=== PATIENT | male | born 1990 | race Caucasian/White ===

== ENCOUNTER 2017-02-28 19:42 | Emergency (ER) | payer OTHER ==
[~2017-02-28] VITALS: Ht 182.9 cm; Wt 97.5 kg
[~2017-02-28 19:42] MED LIST: IBUPROFEN 800800 MG PO; LIDOCREAM5 GM TP; NORCO 5-325 TA1 EAC1 PO; NORCO 5-325 TA1 EACH PO
[2017-02-28] MEDS ORDERED: FLEXERIL PO (19:54)
[2017-02-28] MEDS ORDERED: NAPROSYN500 MG PO (19:54)
[2017-02-28 20:25] LABS: HEMATOCRIT 36.8 % (42.0-52.0); HEMOGLOBIN 12.9 gm/dL (14.0-18.0); MCH 31.4 pg (26.0-34.0); MCHC 35.1 g/dL (28.0-37.0); MCV 89.6 fL (80.0-100.0); MPV 7.1 fl. (7.2-11.1); RBC 4.11 mil/uL (4.50-6.00); RDW-CV 12.8 % (10.5-14.5); WBC 9.2 thou/uL (4.0-11.0)
[2017-02-28 20:37] LABS: CREATININE 0.9 mg/dL (0.6-1.3); POTASSIUM 3.7 mmol/L (3.5-5.1)
[2017-02-28] MEDS ORDERED: NORVASC5 MG PO (21:09)
[2017-02-28 21:26] VITALS: BP 169/98
== END 2017-02-28 21:26 | disposition home or self-care (01) ==
LOC: M.ERS 19:42
PROVIDERS: Physician Assistant
DX: I10 Essential (primary) hypertension (principal)

== ENCOUNTER 2018-05-04 12:37 | Emergency (ER) | payer OTHER ==
[~2018-05-04] VITALS: Ht 182.9 cm; Wt 93.0 kg
[~2018-05-04 12:37] MED LIST changes: +FLEXERIL PO; +NAPROSYN500 MG PO; +NORVASC5 MG PO
[2018-05-04] MEDS ORDERED: NOHOMEMEDICATIONS (12:49)
[2018-05-04 13:46] LABS: ABSOLUTE LYMPHOCYTES 1.8 thou/uL (0.8-5.3); ABSOLUTE MONOCYTES 0.5 thou/uL (0.0-1.2); ABSOLUTE NEUTROPHILS 8.7 thou/uL (1.6-8.1); BASOPHILS 0.3 %; EOSINOPHILS 0.2 %; HEMATOCRIT 36.5 % (42.0-52.0); HEMOGLOBIN 12.8 gm/dL (14.0-18.0); LYMPHOCYTES 16.3 %; MCHC 35.1 g/dL (28.0-37.0); MCV 88.2 fL (80.0-100.0); MONOCYTES 4.9 %; MPV 7.6 fl. (7.2-11.1); NUCLEATED RBCS 0 /100WBC; PLATELET COUNT* 411 thou/uL (150-400); POLYS 78.3 %; RBC 4.13 mil/uL (4.50-6.00); RDW-CV 12.7 % (10.5-14.5); WBC 11.1 thou/uL (4.0-11.0)
[2018-05-04 13:57] LABS: APTT 26.7 Seconds (25.0-31.3); INR 1.1
[2018-05-04 14:00] LABS: ALBUMIN 3.6 g/dL (3.4-5.0); CALCIUM 9.1 mg/dL (8.5-10.1); CREATININE 0.9 mg/dL (0.6-1.3); POTASSIUM 4.5 mmol/L (3.5-5.1); TOTAL BILIRUBIN 0.5 mg/dL (<0.1-1.0); TOTAL PROTEIN 6.5 g/dL (6.4-8.2)
[2018-05-04] MEDS ORDERED: OMEPRAZOLE 20 M20 M1 PO (15:17)
[2018-05-04] MEDS ORDERED: CARAFATE 1 GM TA1 G1 PO (15:17)
[2018-05-04 15:31] VITALS: BP 122/79
== END 2018-05-04 15:32 | disposition home or self-care (01) ==
LOC: M.ERS 12:37
PROVIDERS: Nurse Practitioner Family
DX: R19.5 Other fecal abnormalities (principal)

== ENCOUNTER 2019-01-11 21:11 | Emergency (ER) | payer OTHER ==
[~2019-01-11] VITALS: Ht 182.9 cm; Wt 90.7 kg
[~2019-01-11 21:11] MED LIST changes: +CARAFATE 1 GM TA1 G1 PO; +NOHOMEMEDICATIONS; +OMEPRAZOLE 20 M20 M1 PO
[2019-01-11 21:45] LABS: ABSOLUTE EOSINOPHILS 0.3 thou/uL (0.0-0.7); ABSOLUTE LYMPHOCYTES 3.3 thou/uL (0.8-5.3); ABSOLUTE MONOCYTES 0.7 thou/uL (0.0-1.2); ABSOLUTE NEUTROPHILS 7.4 thou/uL (1.6-8.1); BASOPHILS 0.4 %; EOSINOPHILS 2.8 %; HEMATOCRIT 44.1 % (42.0-52.0); HEMOGLOBIN 15.8 gm/dL (14.0-18.0); LYMPHOCYTES 28.3 %; MCH 31.8 pg (26.0-34.0); MCHC 35.8 g/dL (28.0-37.0); MCV 88.8 fL (80.0-100.0); MPV 7.9 fl. (7.2-11.1); NUCLEATED RBCS 0 /100WBC; PLATELET COUNT* 349 thou/uL (150-400); POLYS 62.5 %; RBC 4.96 mil/uL (4.50-6.00); RDW-CV 12.6 % (10.5-14.5); WBC 11.8 thou/uL (4.0-11.0)
[2019-01-11 21:49] LABS: CALCIUM 8.5 mg/dL (8.5-10.1); POTASSIUM 3.8 mmol/L (3.5-5.1)
[2019-01-11 22:00] LABS: ALBUMIN 3.8 g/dL (3.4-5.0); TOTAL BILIRUBIN 0.4 mg/dL (<0.1-1.0)
[2019-01-11] MEDS ORDERED: CARAFATE1 GM PO (22:24)
[2019-01-11] MEDS ORDERED: PEPCID40 MG PO (22:24)
[2019-01-11 22:34] VITALS: BP 152/92
--- NOTE | 2019-01-12 13:13 | EKG ---
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1990 Requested By: Luis Carlos Branch Order Number: [id number] MD: Bharathi Bustillos Measurements Intervals [place] Rate: 67 P: 64 NM: 145 QRS: 44 QRSD: 89 T: 31 QT: 386 QTc: 408 Interpretive Statements Sinus rhythm Baseline wander in lead(s) V6 No previous ECG available for comparison Electronically Signed On 01-12-2019 13:13:43 [employer]ENN[employer]FF MEMBER by Bharathi Bustillos [email or web address] <ELECTRONICALLY SIGNED> By: Bharathi Bustillos MD, [facility] 01/12/19 1313 2115 14 Bharathi Bustillos MD, FACC /EPI
== END 2019-01-11 22:35 | disposition home or self-care (01) ==
LOC: M.ERS 21:11
PROVIDERS: Emergency Medicine
DX: K29.70 Gastritis, unspecified, without bleeding (principal); I10 Essential (primary) hypertension

== ENCOUNTER 2020-09-19 07:58 | Observation (INO) | payer OTHER ==
[~2020-09-19] VITALS: Ht 182.9 cm; Wt 96.4 kg
--- NOTE | ~2020-09-19 | OP ---
[facility] [address] [place] [address] OPERATIVE REPORT Name: EVELIA CAMPOS Room: [address] M.R.#: [id number] Admission: 09/19/20 Attend Phys: Jhoana Goldstein MD Discharge: Date of : 88 Report #: [id number] THIS REPORT FOR: cc: Talita Riggs Michelle RNP Patterson, Jonathan D. MD ~ DATE OF SURGERY: 09/20/2020 PREOPERATIVE DIAGNOSIS: Cholecystitis. POSTOPERATIVE DIAGNOSIS: Cholecystitis. OPERATION: Laparoscopic cholecystectomy with intraoperative cholangiogram. SURGEON: Jarrod Feliciano MD ANESTHESIA: General. ESTIMATED BLOOD LOSS: Minimal. SPECIMENS: Gallbladder. DESCRIPTION OF PROCEDURE: After informed consent was obtained, the patient was brought to the operating room and placed supine. SCDs were placed and working, preoperative antibiotics were administered, general anesthesia was induced. The abdomen was prepped and draped in the usual sterile fashion. A 10 mm incision was made below the umbilicus. Fascia was incised and a trocar was placed. Pneumoperitoneum was established. Three right upper quadrant 5 mm ports were placed. Gallbladder was grasped at the fundus and retracted cephalad. Infundibulum was grasped and retracted laterally. I dissected out the cystic duct and the cystic artery. Cystic duct was clipped and a ductotomy was made. Cystic duct was cannulated with a catheter and a cholangiogram was performed. This demonstrated filling of the cystic duct, common bile duct, common hepatic duct, bifurcation of the hepatics, smooth flow into the duodenum. This was normal. The catheter was removed. The cystic duct was ligated using a PDS Endoloop. Cystic artery was clipped and ligated leaving one clip on the remaining artery. Gallbladder was then taken off the liver bed with electrocautery. It was placed into an Endopouch and removed. The fascia was then closed with a [id number] 0 Vicryl. Skin was closed with 4-0 Monocryl. Incisions were dressed with Steri-Strips. COMPLICATIONS: [place] [address] OPERATIVE REPORT Name: EVELIA CAMPOS Room: [address]#: [id number] Admission: 09/19/20 Attend Phys: Jhoana Goldstein MD Discharge: Date of : 88 Report #: [id number] DISPOSITION: The patient was taken to recovery in satisfactory condition. By: [id number] Feliciano MD /nt
[~2020-09-19 07:58] MED LIST changes: +CARAFATE1 GM PO; +PEPCID40 MG PO
[2020-09-19 08:06] VITALS: BP 159/105
[2020-09-19] MEDS ORDERED: NORVASC5 MG PO (08:09)
[2020-09-19 09:19] LABS: ABSOLUTE EOSINOPHILS 0.4 thou/uL (0.0-0.7); ABSOLUTE LYMPHOCYTES 2.2 thou/uL (0.8-5.3); ABSOLUTE MONOCYTES 0.6 thou/uL (0.0-1.2); ABSOLUTE NEUTROPHILS 5.6 thou/uL (1.6-8.1); BASOPHILS 0.2 %; EOSINOPHILS 4.4 %; HEMATOCRIT 43.8 % (42.0-52.0); HEMOGLOBIN 15.8 gm/dL (14.0-18.0); LYMPHOCYTES 24.5 %; MCH 33.1 pg (26.0-34.0); MCHC 36.2 g/dL (28.0-37.0); MCV 91.5 fL (80.0-100.0); MONOCYTES 7.3 %; MPV 7.4 fl. (7.2-11.1); NUCLEATED RBCS 0 /100WBC; PLATELET COUNT* 272 thou/uL (150-400); POLYS 63.6 %; RBC 4.79 mil/uL (4.50-6.00); RDW-CV 12.6 % (10.5-14.5); WBC 8.8 thou/uL (4.0-11.0)
[2020-09-19 09:28] LABS: CALCIUM 8.4 mg/dL (8.5-10.1); POTASSIUM 4.7 mmol/L (3.5-5.1)
[2020-09-19 09:37] LABS: ALBUMIN 4.4 g/dL (3.4-5.0); TOTAL BILIRUBIN 0.8 mg/dL (<0.1-1.0); TOTAL PROTEIN 7.4 g/dL (6.4-8.2)
[2020-09-19 16:23] VITALS: BP 141/90
[2020-09-19 16:30] VITALS: BP 139/101
[2020-09-19] MEDS ORDERED: HYDROCHLOROTHIA25 M1 PO (20:10)
[2020-09-19 21:00] VITALS: BP 131/87
[2020-09-20 06:37] VITALS: BP 139/101
[2020-09-20 08:51] VITALS: BP 139/101
--- NOTE | 2020-09-20 09:33 | EKG ---
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 09/20/20 0933 3 3 FJenny Cabrera MD, [facility] /EPI
[2020-09-20 10:00] VITALS: BP 133/75
[2020-09-20] MEDS ORDERED: HYDROCODON-ACE1 EAC7 PO (10:35)
[2020-09-20] MEDS ORDERED: NORVASC5 MG PO (10:35)
[2020-09-20 14:11] VITALS: BP 139/101
--- NOTE | 2020-09-21 18:06 | PATH ---
[address] [address] PATHOLOGY RPT PROCEDURE Name: EVELIA CAMPOS Room: [address] Clive#: [id number] Admission: 09/19/20 Date of : [birth year] Discharge: 09/20/20 Report #: [id number] Path Case #: [id number] [facility] Accession Number: [id number] . 01 Material submitted: . gallbladder - GALLBLADDER . 01 Clinical history: . CHRONIC CHOLECYSTITIS . 02 Diagnosis: Gallbladder: - Chronic cholecystitis. (OLU/db; 09/21/2020) LBQ 09/21/2020 1532 Local . 02 Electronically signed: . Vimal Leon MD, Pathologist NPI- [id number] . 01 Gross description: . Fixative: Formalin Labeled: Gallbladder Specimen received: Intact gallbladder Dimensions: 6.5 x 2.6 x 2.2 cm Serosa: Light hobbs to light red Lymph node: None identified Mucosa: Velvety and bile-stained Average wall thickness: 0.1 cm Calculi: None identified Abnormalities: None identified . A1- Chemical Laboratory Tester body, fundus, and the cystic duct margin. ([facility]; 09/20/2020) [facility] 09/20/2020 1712 Local . 02 Pathologist provided ICD-10: K81.1 . 02 CPT . 818410 Specimen Comment: A courtesy copy of this report has been sent to [phone] Specimen Comment: Report sent to Performed at: [address], [place], [place] [id number] MD Kelton Mayes MD Phone: [phone] Performed at: [address] [address] PATHOLOGY RPT PROCEDURE Name: EVELIA CAMPOS Room: [address]#: [id number] Admission: 09/19/20 Date of : [birth year] Discharge: 09/20/20 Report #: [id number] Path Case #: [id number] [facility] [address] [place], [place] [id number] MD Vimal Leon MD Phone: [phone]
== END 2020-09-20 14:13 | disposition home or self-care (01) ==
LOC: M.ERS 07:58 → M.TBA-ER 12:19 → M.3W 16:38
PROVIDERS: Emergency Medicine Emergency Medical Services; ADMIT Internal Medicine; ATTEND Internal Medicine
DX: K81.9 Cholecystitis, unspecified (principal); K83.9 Disease of biliary tract, unspecified; Z20.822 Contact with and (suspected) exposure to COVID-19; I10 Essential (primary) hypertension; Z79.899 Other long term (current) drug therapy

== ENCOUNTER 2020-11-11 22:03 | Emergency (ER) | payer OTHER ==
[~2020-11-11] VITALS: Ht 182.9 cm; Wt 88.9 kg
[~2020-11-11 22:03] MED LIST changes: +HYDROCHLOROTHIA25 M1 PO; +HYDROCODON-ACE1 EAC7 PO
[2020-11-11] MEDS ORDERED: BLOOD PRESSURE MED (22:18)
[2020-11-11 22:42] LABS: ABSOLUTE LYMPHOCYTES 1.2 thou/uL (0.8-5.3); ABSOLUTE MONOCYTES 0.5 thou/uL (0.0-1.2); ABSOLUTE NEUTROPHILS 6.9 thou/uL (1.6-8.1); BASOPHILS 0.3 %; EOSINOPHILS 0.3 %; HEMATOCRIT 44.4 % (42.0-52.0); HEMOGLOBIN 16.1 gm/dL (14.0-18.0); LYMPHOCYTES 14.4 %; MCH 32.8 pg (26.0-34.0); MCHC 36.3 g/dL (28.0-37.0); MCV 90.4 fL (80.0-100.0); MONOCYTES 5.4 %; MPV 7.2 fl. (7.2-11.1); NUCLEATED RBCS 0 /100WBC; PLATELET COUNT* 305 thou/uL (150-400); POLYS 79.6 %; RBC 4.91 mil/uL (4.50-6.00); RDW-CV 12.6 % (10.5-14.5); WBC 8.6 thou/uL (4.0-11.0)
[2020-11-11 22:54] LABS: CALCIUM 8.6 mg/dL (8.5-10.1); CREATININE 0.9 mg/dL (0.6-1.3); POTASSIUM 3.1 mmol/L (3.5-5.1)
[2020-11-11 22:59] LABS: ALBUMIN 4.8 g/dL (3.4-5.0); TOTAL BILIRUBIN 0.5 mg/dL (<0.1-1.0)
[2020-11-11 23:01] LABS: ALCOHOL 141 mg/dL (<10); SALICYLATE < 2.8 mg/dL (2.8-20.0)
[2020-11-11 23:05] LABS: ACETAMINOPHEN < 2 ug/mL (10-30)
[2020-11-11 23:12] LABS: URINE BILIRUBIN NEGATIVE (Negative); URINE BLOOD 1+ (Negative); URINE CLARITY CLEAR; URINE COLOR YELLOW; URINE GLUCOSE-RANDOM 1+ (Negative); URINE KETONES NEGATIVE (Negative); URINE LEUKOCYTES-REFLEX NEGATIVE (Negative); URINE NITRITE-REFLEX NEGATIVE (Negative); URINE PROTEIN 1+ (Negative); URINE SPECIFIC GRAVITY 1.025 (1.005-1.030); URINE UROBILINOGEN 0.2 E.U./dl (0.2-1.0)
[2020-11-11 23:17] LABS: MUCUS >6 Heavy strn/LPF (None Seen)
[2020-11-11 23:18] LABS: AMORPHOUS PHOSPHATES Many /LPF (None Seen); BACTERIA-REFLEX 1-9 Few /HPF (None Seen); CASTS None Seen /LPF (None Seen); SQUAMOUS 0-3 Few /LPF (0-3); URINE RBC None Seen /HPF (0-2); URINE WBC-REFLEX 0-5 Rare /HPF (0-5)
[2020-11-11 23:19] LABS: AMP/METHAMP POSITIVE (Negative); BARBITURATES Negative (Negative); BENZODIAZEPINES Negative (Negative); COCAINE Negative (Negative); METHADONE Negative (Negative); OPIATES Negative (Negative); PCP Negative (Negative); THC POSITIVE (Negative)
[2020-11-12] MEDS ORDERED: NORVASC5 MG PO (09:21)
[2020-11-12 09:52] VITALS: BP 170/88
--- NOTE | 2020-11-12 11:52 | EKG ---
[place] [address] ELECTROCARDIOGRAM REPORT Name: BETHEVELIA Otero Room: [facility]#: [id number] Admission: 11/11/20 Attend Phys: Discharge: 11/12/20 Date of : 88 Date of Service: 11/11/202212 Report #: [id number] THIS REPORT FOR: //name// [facility] ED Test Date: 2020-11-11 Test Time: 22:13:24 Pat Name: EVELIA CAMPOS Department: Room: Gender: Correspondent: : 1990 Requested By: Priscila Champagne Order Number: [id number] MD: Porfirio Cabrera Measurements Intervals [place] Rate: 103 P: 68 AL: 154 QRS: 47 QRSD: 95 T: 54 QT: 324 QTc: 424 Interpretive Statements Sinus tachycardia Consider left atrial enlargement Minimal ST depression, lateral leads Compared to ECG 09/20/2020 07:04:34 ST (T wave) deviation now present Sinus rhythm no longer present Electronically Signed On 11-12-2020 11:52:05 CDT by Porfirio Cabrera [email or web address] <ELECTRONICALLY SIGNED> By: Mary Jo Cabrera MD, [facility] 11/12/20 1152 12 12 Mary Jo Cabrera MD, [facility] /EPI
== END 2020-11-12 09:53 | disposition home or self-care (01) ==
LOC: M.ERS 22:03
PROVIDERS: Emergency Medicine
DX: T44.992A Poisoning by other drug primarily affecting the autonomic nervous system, intentional self-harm, initial encounter (principal); Z20.822 Contact with and (suspected) exposure to COVID-19; R45.851 Suicidal ideations; I10 Essential (primary) hypertension; Z79.899 Other long term (current) drug therapy; Y92.89 Other specified places as the place of occurrence of the external cause

== ENCOUNTER 2020-12-12 21:29 | Emergency (ER) | payer OTHER ==
[~2020-12-12] VITALS: Ht 182.9 cm; Wt 86.2 kg
[~2020-12-12 21:29] MED LIST changes: +BLOOD PRESSURE MED
[2020-12-12] MEDS ORDERED: MEDROLDOSEPACK PO (21:48)
[2020-12-12] MEDS ORDERED: NAPROSYN500 MG PO (21:48)
[2020-12-12 21:55] VITALS: BP 161/98
== END 2020-12-12 22:00 | disposition home or self-care (01) ==
LOC: M.ERS 21:29
DX: G56.01 Carpal tunnel syndrome, right upper limb (principal); I10 Essential (primary) hypertension; Z90.49 Acquired absence of other specified parts of digestive tract

== ENCOUNTER → 2021-03-27 | Emergency (ER) | payer OTHER ==
[~2021-03-27] VITALS: Ht 182.9 cm; Wt 86.6 kg
[~2021-03-27] MED LIST changes: +AMOX TR-K CLV1 EAC4 PO; +HYDROCODON-ACE1 EAC8 PO; +MEDROLDOSEPACK PO
[2021-03-27 22:44] VITALS: BP 156/107
== END ==
LOC: M.ERS 22:36
DX: K02.9 Dental caries, unspecified (principal); I10 Essential (primary) hypertension; Z90.49 Acquired absence of other specified parts of digestive tract; Z79.899 Other long term (current) drug therapy